=== PATIENT | male | born 1970 | race Two or more races ===

== ENCOUNTER 2019-08-31 09:27 | Emergency (ER) | payer OTHER ==
[~2019-08-31] VITALS: Ht 154.9 cm; Wt 74.8 kg
[2019-08-31] MEDS ORDERED: ODEFSEY TABLET1 EACH PO (09:38)
== END 2019-08-31 11:54 | disposition home or self-care (01) ==
LOC: ER 09:27
DX: R42 Dizziness and giddiness (principal); R03.0 Elevated blood-pressure reading, without diagnosis of hypertension

== ENCOUNTER 2020-09-06 12:33 | Emergency (ER) | payer OTHER ==
[~2020-09-06] VITALS: Ht 177.8 cm; Wt 73.5 kg
[~2020-09-06 12:33] MED LIST: ODEFSEY TABLET1 EACH PO
[2020-09-06] MEDS ORDERED: ACETAMINOPHEN650 M2 PO (18:38)
== END 2020-09-06 18:55 | disposition home or self-care (01) ==
LOC: ER 12:33
DX: R53.1 Weakness (principal); E86.0 Dehydration; Z03.818 Encounter for observation for suspected exposure to other biological agents ruled out

== ENCOUNTER 2020-10-05 12:18 | Emergency (ER) | payer OTHER ==
[~2020-10-05] VITALS: Ht 175.3 cm; Wt 73.9 kg
[~2020-10-05 12:18] MED LIST changes: +ACETAMINOPHEN650 M2 PO
[2020-10-05] MEDS ORDERED: ODEFSEY TABLET1 EACH PO (12:29)
== END 2020-10-05 16:56 | disposition home or self-care (01) ==
LOC: ER 12:18
DX: I16.0 Hypertensive urgency (principal); Z20.828 Contact with and (suspected) exposure to other viral communicable diseases

== ENCOUNTER 2020-10-14 11:32 | Emergency (ER) | payer OTHER ==
[~2020-10-14] VITALS: Ht 175.3 cm; Wt 72.6 kg
[2020-10-14] MEDS ORDERED: HYDROCHLOROTHIA25 MG PO (11:54)
== END 2020-10-14 14:23 | disposition home or self-care (01) ==
LOC: ER 11:32
DX: I10 Essential (primary) hypertension (principal)

== ENCOUNTER 2021-01-03 13:18 | Outpatient (CLI) | payer OTHER ==
[~2021-01-03 13:18] MED LIST changes: +HYDROCHLOROTHIA25 MG PO
== END 2021-01-03 14:05 | disposition home or self-care (01) ==
LOC: OFIC 805 13:18
PROVIDERS: ATTEND Otolaryngology Otology & Neurotology
DX: J30.89 Other allergic rhinitis (principal); R09.82 Postnasal drip

== ENCOUNTER 2021-05-23 18:43 | Emergency (ER) | payer OTHER ==
[~2021-05-23] VITALS: Ht 177.8 cm; Wt 68.9 kg
[2021-05-23] MEDS ORDERED: LOSARTAN POTASS50 MG PO (19:03)
[2021-05-23] MEDS ORDERED: DOVATO 50-3001 EACH PO (19:04)
== END 2021-05-23 22:21 | disposition home or self-care (01) ==
LOC: ER 18:43
DX: S80.01XA Contusion of right knee, initial encounter (principal); W10.8XXA Fall (on) (from) other stairs and steps, initial encounter; Y93.89 Activity, other specified; Y92.488 Other paved roadways as the place of occurrence of the external cause; Y99.8 Other external cause status

== ENCOUNTER → 2022-01-30 | Emergency (ER) | payer OTHER ==
[~2022-01-30] MED LIST changes: +DOVATO 50-3001 EACH PO; +LOSARTAN POTASS50 MG PO
== END | disposition home or self-care (01) ==
LOC: ER 20:17
DX: S52.502A Unspecified fracture of the lower end of left radius, initial encounter for closed fracture (principal); W19.XXXA Unspecified fall, initial encounter; Y93.9 Activity, unspecified; Y92.9 Unspecified place or not applicable; Y99.9 Unspecified external cause status

== ENCOUNTER 2022-09-26 02:54 | Emergency (ER) | payer OTHER ==
[~2022-09-26] VITALS: Ht 177.8 cm; Wt 73.5 kg
== END 2022-09-26 04:17 | disposition home or self-care (01) ==
LOC: ER 02:54
DX: R09.82 Postnasal drip (principal)